=== PATIENT | male | born 1960 | race Two or more races ===

== ENCOUNTER 2017-02-17 19:32 | Inpatient (IN) | payer OTHER ==
[~2017-02-17] VITALS: Ht 170.2 cm; Wt 97.5 kg
[2017-02-17 21:51] LABS: BASOPHIL % 0.5 % (0-2); PLATELET COUNT 246 x10^3mcL (130-400); RED CELL DISTRIBUTION WIDTH 14.4 % (11.5-14.5)
[2017-02-17 22:04] LABS: CALCIUM 8.9 mg/dL (8.5-10.1); CARBON DIOXIDE 25.2 mmol/L (21-32); CHLORIDE SERUM 103 mmol/L (98-107); GFR1 > 60 mL/min; GLUCOSE SERUM 127 mg/dL (74-106); POTASSIUM SERUM 4.5 mmol/L (3.5-5.1); SODIUM SERUM 140 mmol/L (136-145)
[2017-02-17 22:08] LABS: ALBUMIN 3.9 g/dL (3.4-5.0); ALKALINE PHOSPHATASE 26 U/L (46-116); ALT/SGPT 30 U/L (16-63); AST/SGOT 22 U/L (15-37); BILIRUBIN TOTAL 0.3 mg/dL (0.20-1.00); TOTAL PROTEIN, SERUM 7.2 g/dL (6.4-8.2)
[2017-02-17 22:35] LABS: microscopic required? NO
[2017-02-17 22:44] LABS: urine erythrocyte NEGATIVE (NEGATIVE)
[2017-02-17] MEDS ORDERED: JANUVIA100 M1 (23:09)
[2017-02-17] MEDS ORDERED: NATURE'S BLEND F1 MG (23:10)
[2017-02-17] MEDS ORDERED: TENORMIN25 MG PO (23:10)
[2017-02-17] MEDS ORDERED: BAYER ASPIRIN C81 MG PO (23:11)
[2017-02-17] MEDS ORDERED: LISINOPRIL10 MG PO (23:11)
[2017-02-17] MEDS ORDERED: FENOFIBRATE MI134 MG PO (23:12)
[2017-02-17] MEDS ORDERED: NIASPAN1000 MG (23:12)
[2017-02-18 00:29] VITALS: BP 136/71
[2017-02-18 02:00] LABS: MAGNESIUM 1.8 mg/dL (1.8-2.4); PHOSPHOROUS 4.1 mg/dL (2.5-4.9)
[2017-02-18 02:01] LABS: CHOLESTEROL/HDL RATIO 6.3
[2017-02-18 02:11] LABS: FREE T4 1.17 ng/dL (0.76-1.46); T4(THYROXINE) 8.7 ug/dL (4.7-13.3)
[2017-02-18 03:28] LABS: T3 TOTAL 1.02 ng/mL
[2017-02-18 05:14] VITALS: BP 118/65
[2017-02-18 07:29] LABS: CALCIUM 8.5 mg/dL (8.5-10.1); CARBON DIOXIDE 26.2 mmol/L (21-32); CHLORIDE SERUM 106 mmol/L (98-107); GFR1 > 60 mL/min; GLUCOSE SERUM 107 mg/dL (74-106); MAGNESIUM 1.8 mg/dL (1.8-2.4); PHOSPHOROUS 3.8 mg/dL (2.5-4.9); POTASSIUM SERUM 4.2 mmol/L (3.5-5.1); SODIUM SERUM 140 mmol/L (136-145)
[2017-02-18 07:31] LABS: BASOPHIL % 0.4 % (0-2); PLATELET COUNT 249 x10^3mcL (130-400)
[2017-02-18 09:35] VITALS: BP 116/63
[2017-02-18 09:41] VITALS: Ht 170.2 cm; Wt 97.5 kg
[2017-02-18 11:18] LABS: AMPHETAMINE QUAL UR NONE DETECTED (NEG <=1000)
[2017-02-18 13:20] VITALS: BP 113/63
== END 2017-02-18 16:00 | disposition left against medical advice (07) | DRG 101 ==
LOC: ED 19:32 → DU 23:10
PROVIDERS: Emergency Medicine; Family Medicine
DX: G40.89 Other seizures (principal); D68.69 Other thrombophilia; E11.65 Type 2 diabetes mellitus with hyperglycemia; E11.59 Type 2 diabetes mellitus with other circulatory complications; I25.10 Atherosclerotic heart disease of native coronary artery without angina pectoris; I10 Essential (primary) hypertension; D64.9 Anemia, unspecified; E78.5 Hyperlipidemia, unspecified; Z68.33 Body mass index [BMI] 33.0-33.9, adult; Z95.5 Presence of coronary angioplasty implant and graft; Z87.891 Personal history of nicotine dependence
CPT/HCPCS: 82962; 83880; 84439; G0480; Q0092